=== PATIENT | female | born 1975 | race Caucasian/White ===

== ENCOUNTER 2020-09-09 22:21 | Emergency (ER) | payer MEDICARE, MEDICAID ==
[~2020-09-09] VITALS: Ht 165.1 cm; Wt 86.1 kg
[~2020-09-09 22:21] MED LIST: FLUO40CA9 PO; GABA600T PO; HYDR50CA PO; LORA-445 PO; MAG355OR15 PO; MINO100C61 PO; TRAZ-175 PO; ZIPR80CA2 PO; [UNRECOGNIZED DRUG - REMARK]
[2020-09-09 22:23] VITALS: BP 171/121
[2020-09-09 23:44] LABS: ALBUMIN 3.7 g/dL (3.4-5.0); ANION GAP 3 mmol/L (5-15); CALCIUM 9.4 mg/dL (8.5-10.1); CHLORIDE 111 mmol/L (98-107)
[2020-09-09 23:47] LABS: ALANINE AMINOTRANSFERASE 29 U/L (12-78); ALKALINE PHOSPHATASE 59 U/L (45-117); BILIRUBIN,TOTAL 0.4 mg/dL (0.2-1.0); CREATININE 1.08 mg/dL (0.55-1.02); TOTAL PROTEIN 8.2 g/dL (6.4-8.2)
[2020-09-10 00:35] LABS: BASOPHILS % (AUTO) 2 % (0-1); EOSINOPHILS % (AUTO) 2 % (1-7); LYMPHOCYTES % (AUTO) 24 % (22-44); MEAN CORPUSCULAR HEMOGLOBIN 27.6 pg (27.0-34.8); MEAN CORPUSCULAR HGB CONC 33.1 g/dL (32.4-35.8); MEAN PLATELET VOLUME 10.3 fL (7.4-10.4); MONOCYTES % (AUTO) 7 % (2-9); NEUTROPHILS % (AUTO) 65 % (42-75); PLATELET COUNT 223 x10^3/uL (130-400); RED BLOOD COUNT 5.13 x10^6/uL (3.82-5.3); RED CELL DISTRIBUTION WIDTH 14.6 % (9.6-15.2)
[2020-09-10 00:50] LABS: MD NO
== END 2020-09-10 01:22 | disposition home or self-care (01) ==
LOC: ED 09-10 00:48
DX: N93.8 Other specified abnormal uterine and vaginal bleeding (principal); F10.10 Alcohol abuse, uncomplicated; F15.129 Other stimulant abuse with intoxication, unspecified; E87.5 Hyperkalemia; F17.210 Nicotine dependence, cigarettes, uncomplicated; Z98.51 Tubal ligation status; Y90.0 Blood alcohol level of less than 20 mg/100 ml
CPT/HCPCS: 36415; 76700; 76830; 80053; 84703; 85025; 99285